=== PATIENT | male | born 1930 | race Caucasian/White ===

== ENCOUNTER 2021-01-22 17:20 | Inpatient (IN) | payer BC, OTHER ==
[~2021-01-22] VITALS: Ht 182.9 cm; Wt 86.6 kg
--- NOTE | 2021-01-22 17:56 | NUR ---
BIBRA 88 FROM HOME C/O HIP PAIN RADIATES TO THROAT "IM SCARED OF ANEURYSM" BG 94. PT AAOX4, VSS. RR EVEN & UNLABORED, PT ALSO C/O MIDSTERNAL CHEST PAIN. PLACED ON SCIENCE INSTRUCTOR, SR. PT SEEN & EVAL'D BY DR. LORENZANA. WILL CONT TO MONITOR. .
[2021-01-22 18:25] LABS: BASOPHILS % (AUTO) 0.4 % (0.0-2.0); EOSINOPHILS % (AUTO) 1.8 % (0.0-6.0); HEMATOCRIT 43 % (39-51); HEMOGLOBIN 14.3 g/dL (13.5-17.5); LYMPHOCYTES # (AUTO) 2.5 K/uL (0.8-4.8); LYMPHOCYTES % (AUTO) 32.8 % (20.0-44.0); MEAN CORPUSCULAR HGB CONC 33 g/dl (31.0-36.0); MEAN CORPUSCULAR VOLUME 89 fL (80-96); MONOCYTES # (AUTO) 0.7 K/uL (0.1-1.30); MONOCYTES % (AUTO) 8.8 % (2.0-12.0); NEUTROPHILS # (AUTO) 4.2 K/uL (1.8-8.9); NEUTROPHILS % (AUTO) 56.2 % (43.0-81.0); PLATELET COUNT (AUTO) 145 K/uL (150-450); WHITE BLOOD COUNT (AUTO) 7.5 K/uL (4.3-11.0)
[2021-01-22 18:37] LABS: CALCIUM, SERUM 8.9 mg/dL (8.5-10.1); CARBON DIOXIDE 23 mmol/L (21-32); CHLORIDE 105 mmol/L (98-107); CREATININE 1.3 mg/dL (0.6-1.3); GLUCOSE 112 mg/dL (74-106); SODIUM SERUM 140 mmol/L (136-145); UREA NITROGEN, BLOOD 22 mg/dL (7-18)
[2021-01-22] MEDS ORDERED: IOHEXOL-350 100 ML VIAL IV ONE (19:35)
[2021-01-22] MEDS ORDERED: IV NS 0.9% 250 ML IV ONE (19:35)
[2021-01-22] MEDS ORDERED: CT SWABBABLE VALVE TRANS SET 1 EA INFUS.SET MC ONE (19:35)
--- NOTE | 2021-01-22 19:53 | NUR ---
PT RETURN FROM [place] VIA [facility].
[2021-01-22] MEDS ORDERED: ESMOLOL IVPB PREMIX 250 ML IV ONE ×2 (20:00→20:08)
--- NOTE | 2021-01-22 20:03 | NUR ---
[facility] CALLED
[2021-01-22] MEDS ORDERED: HYDROMORPHONE 1 MG/1 ML DISP.SYRIN ONE (20:08)
--- NOTE | 2021-01-22 20:14 | NUR ---
COVID SWAB DONE AND SENT TO LAB
--- NOTE | 2021-01-22 20:20 | NUR ---
[facility] CALLED. PUT ON HOLD.
--- NOTE | 2021-01-22 20:20 | NUR ---
PT NOTED TO BE HYPOTENSIVE, DR. LORENZANA AWARE, HELD ESMOLOL DRIP AT THIS TIME
--- NOTE | 2021-01-22 20:30 | NUR ---
DILAUDID 0.5MG IVP VERBAL ORDER FOR DR. LORENZANA
--- NOTE | 2021-01-22 20:31 | NUR ---
CALLED [facility] FOR TRANSPORT, HIGHER LEVEL OF CARE IS RESERVED ONLY FOR PEDIATRICS AND OB PTS AT THIS TIME.
--- NOTE | 2021-01-22 20:35 | NUR ---
[facility] CALLED FOR HIGHER LEVEL OF CARE. FAC[facility]HEET AND CLINICALS FAXED.
--- NOTE | 2021-01-22 20:36 | NUR ---
CALL BACK FROM [facility]. UNABLE TO ACCEPT PATIENT.
--- NOTE | 2021-01-22 20:45 | NUR ---
CALL FROM [facility]. NO BEDS AVAILABLE.
--- NOTE | 2021-01-22 20:50 | NUR ---
STARTED ESMOLOL PER DR. LORENZANA; STARTED 25MCG/KG VERBAL ORDER. TITRATE TO 50MCG TO KEEP HR 60
--- NOTE | 2021-01-22 20:51 | NUR ---
[facility] CALLED FOR HIGHER LEVEL OF CARE. FAC[facility]HEET [facility] CLINICALS FAXED.
--- NOTE | 2021-01-22 20:57 | NUR ---
[facility] CALLED FOR HIGHER LEVEL OF CARE.
--- NOTE | 2021-01-22 21:05 | NUR ---
DR AMARAL PAGED PER DR LORENZANA.
--- NOTE | 2021-01-22 21:20 | NUR ---
[facility] CALLED FOR HIGHER LEVEL OF CARE. FACESHEET AND CLINICALS FAXED.
--- NOTE | 2021-01-22 21:31 | NUR ---
CALL BACK FROM [facility]. UNABLE TO ACCEPT PATIENT.
--- NOTE | 2021-01-22 21:31 | NUR ---
ESMOLOL TITRATED TO 35MCG/KG
--- NOTE | 2021-01-22 21:43 | NUR ---
CALL BACK FROM [facility]. UNABLE TO ACCEPT AT BOTH [facility] AND [facility].
--- NOTE | 2021-01-22 21:48 | NUR ---
[facility] CALLED BACK; LETTING US KNOW THAT THEY ARE STILL TRYING TO GET AHOLD OF THE THORACIC SURGEON.
[2021-01-22] MEDS ORDERED: HYDROMORPHONE 1 MG/1 ML DISP.SYRIN IV ONE (22:00)
--- NOTE | 2021-01-22 22:11 | NUR ---
[facility] ATTENDING MD SPEAKING WITH DR. LORENZANA
--- NOTE | 2021-01-22 22:12 | NUR ---
FAXED OVER FACESHEET AND CLINICAL INFO TO [facility]. THEIR FAX NUMBER IS [phone]
--- NOTE | 2021-01-22 22:13 | NUR ---
CALL BACK FROM [facility]. UNABLE TO ACCEPT PT.
--- NOTE | 2021-01-22 22:30 | NUR ---
PATIENT ON PHONE SPEAKING WITH DR CARVAJAL - [facility] CARDIO THORACIC SURGEON
--- NOTE | 2021-01-22 22:51 | NUR ---
RECEIVED CALLBACK FROM [facility] AND [facility] UNABLE TO ACCEPT PATIENT
[2021-01-22] MEDS ORDERED: ONDANSETRON HCL/PF 4 MG/2 ML VIAL ONE (23:03)
--- NOTE | 2021-01-22 23:13 | NUR ---
PAGED [facility] WILL CALL BACK.
--- NOTE | 2021-01-22 23:27 | NUR ---
ICU 256
[2021-01-22] MEDS ORDERED: ESMOLOL IVPB PREMIX 2,500 MG in PREMIX 1 EA IV PRN (23:30)
[2021-01-22] MEDS ORDERED: HYDROMORPHONE INJ 2 MG/ML DISP.SYRIN IV PRN (23:30)
[2021-01-22] MEDS ORDERED: ACETAMINOPHEN 650 MG/SUPP.RECT RC PRN (23:30)
[2021-01-22] MEDS ORDERED: ONDANSETRON HCL/PF 4 MG/2 ML VIAL IVP PRN (23:30)
--- NOTE | 2021-01-22 23:32 | NUR ---
MATTIE SIGNED WITH DR. LORENZANA
--- NOTE | 2021-01-22 23:35 | NUR ---
MARIANO DELACRUZ (NEPHEW) [phone] & LAURY PHILIP (FRIEND) [phone] MAY GIVE REGARDING THE PATIENT.
--- NOTE | 2021-01-22 23:47 | NUR ---
REPORT GIVEN TO DUC SUAREZ FOR JOSSIE
[2021-01-23] VITALS (40 sets, daily range): BP systolic 71–135; BP diastolic 38–90
--- NOTE | 2021-01-23 00:15 | NUR ---
RN NOTE PT ARRIVED TO THE UNIT VIA [facility], A/A/O X4, ON ESMOLO DRIP RUNNING AT 35MCG/KG/MIN, PT IS ON 2L VIA NC SATING 100%.PT IS CONTINENT AND ABLE TO USE URINAL.
--- NOTE | 2021-01-23 00:20 | NUR ---
PT TRANSPORTED TO ICU, HANDOFF TO DUC SUAREZ
[2021-01-23 04:49] LABS: BASOPHILS % (AUTO) 0.1 % (0.0-2.0); EOSINOPHILS % (AUTO) 0.1 % (0.0-6.0); HEMATOCRIT 42 % (39-51); HEMOGLOBIN 13.6 g/dL (13.5-17.5); LYMPHOCYTES # (AUTO) 1.3 K/uL (0.8-4.8); LYMPHOCYTES % (AUTO) 7.9 % (20.0-44.0); MEAN CORPUSCULAR HGB CONC 32 g/dl (31.0-36.0); MEAN CORPUSCULAR VOLUME 89 fL (80-96); MONOCYTES # (AUTO) 1.1 K/uL (0.1-1.30); MONOCYTES % (AUTO) 6.8 % (2.0-12.0); NEUTROPHILS # (AUTO) 13.9 K/uL (1.8-8.9); NEUTROPHILS % (AUTO) 85.1 % (43.0-81.0); PLATELET COUNT (AUTO) 117 K/uL (150-450); RED BLOOD CELL COUNT(AUTO) 4.71 MIL/uL (4.5-6.0); WHITE BLOOD COUNT (AUTO) 16.4 K/uL (4.3-11.0)
[2021-01-23 05:15] LABS: ALANINE AMINOTRANSFERASE 93 U/L (12-78); ALBUMIN 3.7 g/dL (3.4-5.0); ALKALINE PHOSPHATASE 78 U/L (46-116); ASPARTATE AMINOTRANSFERASE 102 U/L (15-37); BILIRUBIN,TOTAL 0.8 mg/dL (0.2-1.0); CALCIUM, SERUM 8.8 mg/dL (8.5-10.1); CARBON DIOXIDE 20 mmol/L (21-32); CHLORIDE 104 mmol/L (98-107); CREATININE 2.4 mg/dL (0.6-1.3); GLUCOSE 166 mg/dL (74-106); MAGNESIUM 2.4 mg/dL (1.8-2.4); PHOSPHORUS 4.8 mg/dL (2.5-4.9); POTASSIUM 5.9 mmol/L (3.5-5.1); SODIUM SERUM 139 mmol/L (136-145); TOTAL PROTEIN, SERUM 7.2 g/dL (6.4-8.2); UREA NITROGEN, BLOOD 31 mg/dL (7-18)
[2021-01-23 07:03] LABS: CHOLESTEROL 140 mg/dL (<200); HDL CHOLESTEROL 52 mg/dL (40-60); LDL 80 mg/dL (0-99); TRIGLYCERIDES 99 mg/dL (30-150)
--- NOTE | 2021-01-23 07:30 | NUR ---
RN OPENING NOTES RECEIVED PATIENT AWAKE, ALERT AND ORIENTED. SATURATING 99% ON 2L NASAL CANNULA, NOT IN ANY RESPIRATORY DISTRESS. SR 70S ON BEDSIDE MONITOR. RIGHT IJ IN PLACE WITH ESMOLOL DRIP ON HOLD. ALLOWED SIPS OF WATER BY MD. BOWEL MOVEMENT NOTED. URINAL AT BEDSIDE. SAFETY CHECKS IN PLACE. WILL CONTINUE TO MONITOR.
--- NOTE | 2021-01-23 07:30 | NUR ---
rn note report given to oncoming hift for lesley.
[2021-01-23] MEDS ORDERED: PANTOPRAZOLE 40 MG VIAL IV SCH (09:00)
--- NOTE | 2021-01-23 09:00 | NUR ---
RN NOTE ALLOWED CLEAR LIQUID DIET AND TOLERATING WELL.
[2021-01-23] MEDS: SODIUM POLYSTYRENE SULFONATE 15 G/60 ML BOTTLE PO ONE ×2 (10:14→10:22)
--- NOTE | 2021-01-23 10:22 | NUR ---
RN NOTE K 5.9. KAYEXALATE ORDERED. DR AMARAL CAME TO TALK TO PATIENT RE EMERGENT SURGERY. WILL BE KEPT NPO. PATIENT LAST HAD WATER 1000HRS.
--- NOTE | 2021-01-23 11:04 | NUR ---
RN NOTE AWARE OF DR JOY NOTE TO KEEP SBP BELOW 100. DR AMARAL NOTIFIED. DR AMRAAL IS HAPPY FOR 110 AND HAS ORDERED NITROGLYCERIN DRIP TO MAINTAIN SBP BELOW 110 MMHG.
[2021-01-23] MEDS ORDERED: NTG 50 MG/D5W250 ML BOTTL 250 ML IV PRN (11:30)
[2021-01-23] MEDS ORDERED: NTG 50 MG/D5W250 ML BOTTL 50 MG/250 ML BTL IV ONE (11:30)
[2021-01-23] MEDS ORDERED: NTG 50 MG/D5W250 ML BOTTL 50 MG/250 ML BTL IV PRN (11:30)
--- NOTE | 2021-01-23 12:33 | NUR ---
PER REQUEST DR. AMARAL NOTIFIED WHEN THE AMBULANCE ARRIVED TO [place] SAL[facility]ERSON PATIENT TO TAKE HIM TO [place].
--- NOTE | 2021-01-23 12:40 | NUR ---
RN NOTE REPORT GIVEN TO AMBULANCE PERSONNEL. DOCUMENTS HANDED OVER. BELONGINGS HANDED TO CHRISTI AT BEDSIDE. PATIENT LEFT A&O X4 AND IN STABLE CONDITION.
== END 2021-01-23 12:41 | disposition short-term general hospital (02) | DRG 280 ==
LOC: ER 17:21 → ICU 01-23 00:05
PROVIDERS: ADMIT Internal Medicine; ATTEND Internal Medicine
DX: I71.01 Dissection of thoracic aorta (principal); N17.0 Acute kidney failure with tubular necrosis; I21.A1 Myocardial infarction type 2; E87.2 Acidosis; I31.2 Hemopericardium, not elsewhere classified; E66.9 Obesity, unspecified; E87.5 Hyperkalemia; J43.9 Emphysema, unspecified; Z66 Do not resuscitate; Z68.25 Body mass index [BMI] 25.0-25.9, adult; I11.0 Hypertensive heart disease with heart failure; I50.9 Heart failure, unspecified; R74.01 Elevation of levels of liver transaminase levels; I72.3 Aneurysm of iliac artery; K57.90 Diverticulosis of intestine, part unspecified, without perforation or abscess without bleeding; I95.9 Hypotension, unspecified; D72.829 Elevated white blood cell count, unspecified; Z20.822 Contact with and (suspected) exposure to COVID-19; Z87.891 Personal history of nicotine dependence
CPT/HCPCS: 36415; 71045-TC; 80048-TC; 80053-TC; 80061-TC; 83735-TC; 83880; 84100-TC; 84484-TC; 85025-TC; 87081-TC; C9113; C9803; G0378; J1170; J2405; J3490; J7050; Q9967